=== PATIENT | female | born 1965 | race Caucasian/White ===

== ENCOUNTER 2017-04-19 15:56 | Inpatient (IN) | payer MEDICARE ==
[~2017-04-19] VITALS: Ht 154.9 cm; Wt 72.6 kg
--- NOTE | ~2017-04-19 | EC ---
PATIENT:MADYSON HESS DATE OF SERVICE: 04/19/17 SEX: F MEDICAL RECORD: [id number] DATE OF : 63 LOCATION:D. D.212 AGE OF PATIENT: 51 ADMISSION DATE: 04/19/17 REFERRING PHYSICIAN: INTERPRETING PHYSICIAN: VENKATA LEON MD ECHOCARDIOGRAM REPORT ECHO CHARGES 4 ECHO COMPLETE CLINICAL DIAGNOSIS: EVALUATE FUNCTION ECHOCARDIOGRAPHIC MEASUREMENTS (adult normal given) AC root (d.<3.7cm) 2.7 cm LV Septum d (<1.2 cm> 1.9 cm Valve Excursion 1.9 cm LV Septum (systole) 2.4 cm Left Atria (s.<4.0cm> 4.5 cm LVPW d(<1.2cm) 1.6 cm RV (d.<2.3cm) 2.4 cm LVPW (sytole) 2.1 cm LV diastole(<5.6CM) 3.9 cm MV E-F(>70mm/sec) cm LV systole 2.2 cm LVOT Diameter 1.7 cm MV exc.(>10mm) cm Est.ejection fraction (50-75%) % Pericardial Effusion N DOPPLER: LVIT cm/sec A 69.0 cm/sec E 102 cm/sec LA cm/sec RVSP 48.0 mmHg LVOT 156 cm/sec AOP1/2T m/s Asc. Ao 210 cm/sec RVOT 131 cm/sec RA cm/sec PA 118 cm/sec AV Gradient Peak 18.0 mmHg AV Mean 7.8 mmHg AV Area 14.7 cm MV Gradient Peak 5.1 mmHg MV Mean 2.0 mmHg MV Area cm COMMENTS: Concrete Form Setter And Finisher: 1 NATANAEL PARDO [facility] Social Worker: 2 Dr. Davis TAPE# PACS DATE OF SERVICE: 04/20/2017 PROCEDURE: Echocardiogram. FINDINGS: 1. Left ventricular chamber size is within normal limits. Left ventricular systolic function is normal. Overall ejection fraction estimated at 50%. 2. Left atrium is enlarged at 4.5 cm. Right atrium and right ventricular chamber sizes are as well mildly dilated. 3. Valvular structures have normal structure and motion. ECHOCARDIOGRAM REPORT [id number] MADYSON HESS 4. Doppler interrogation reveals mild mitral regurgitation, moderate tricuspid regurgitation, no other valvular insufficiency or stenosis. Pulmonary systolic pressure is elevated estimated at 48 mmHg. 5. No evidence of pericardial effusion or left ventricular thrombus. TRANSINT:[id number] Voice Confirmation ID: [id number] DOCUMENT ID: [id number] VENKATA LEON MD at 1148 CC: [id number] DICTATION DATE: 04/21/17 0947 ICER AIR CONDITIONING: 04/21/17 1013 ADM IN [facility] [address] [id number]
--- NOTE | ~2017-04-19 | OP ---
PATIENT NAME: MADYSON HESS MEDICAL RECORD: [id number] :63 LOCATION:D. D.2121 ADMISSION DATE:04/19/17 SURGEON: SANDIP DAWN MD DATE OF OPERATION: 04/21/2017 REFERRING PHYSICIANS: 1. Dr. Estevez of the renal group. 2. Dr. Kovacs here in [facility]. 3. Avani Fountain APN for the renal group. SURGEON: Sandip Dawn MD ANESTHESIA: General with LMA per LEAN MANUFACTURING COORDINATOR PREOPERATIVE DIAGNOSIS: Acute renal failure, chronic kidney disease and severe hypertension. POSTOPERATIVE DIAGNOSIS: Acute renal failure, chronic kidney disease and severe hypertension. OPERATION PERFORMED: Implantation of a right internal jugular 19-cm HemoSplit catheter done with ultrasound and fluoroscopic guidance. PREOPERATIVE NOTE: This 51-year-old alcoholic female was transferred here with malignant hypertension, acute renal failure from [place], she was admitted to Dr. Kovacs on [facility], Dr. Estevez of nephrology was consulted and he and nurse practitioner Avani Fountain consulted me yesterday afternoon for placement of a dialysis catheter that she is brought to the operating room for this morning. DESCRIPTION OF PROCEDURE: Under general anesthesia with LMA per LEAN MANUFACTURING COORDINATOR, the patient was prepped and draped in a sterile manner in the right internal jugular vein was located with the LilaKutu Duplex Ultrasound. She was placed in Trendelenburg position. A small incision was made at the base of the neck over the vein and a needle and guidewire placed directly into the internal jugular vein under ultrasound guidance. Under fluoroscopy, dilators were passed in the dilator peel-away introducer. I chose a 19-cm HemoSplit and inserted this through an infraclavicular entry site through a subcutaneous tunnel up to the cervical incision and inserted it then the through the peel-away sheath and removed the sheath. Fluoroscopy revealed good positioning of the catheter in the right atrium. Both lumens were accessed and aspirated, free return of blood confirmed. They were then flushed with saline and then heparin lock solution, clamped and capped. The catheter was sutured to the skin, near the entry site with 2-0 Prolene and the cervical incision closed with interrupted inverted 3-0 Vicryl and Dermabond glue. Sterile dressings of the usual nature were applied and the patient awakened and taken to the recovery room. She will go on to have dialysis today. There was no blood loss. No complications occurred during the surgery. TRANSINT:[id number] Voice Confirmation ID: [id number] DOCUMENT ID: [id number] OPERATIVE REPORT [id number] MADYSON HESS JAMES MD at 1404 CC: [id number] DICTATION DATE: 04/21/17 0948 ORDER ANALYST: 04/21/17 1143 ADM IN [id number] [place] [address]
[2017-04-19 19:34] VITALS: BP 144/68; BMI 30.3
[2017-04-19 20:26] LABS: INR 1.62 (0.85-1.17); PROTIME 18.8 SECONDS (11.6-15.0)
[2017-04-19 20:34] LABS: % SATURATION 6 % (15-55); IRON 10 ug/dl (35-150); TOTAL IRON BIND CAPACITY 165 ug/dl (260-445); UNSAT IRON BIND CAPACITY 155 ug/dl (150-375)
[2017-04-19 20:58] VITALS: BP 144/68
[2017-04-20 01:12] VITALS: BP 150/84
[2017-04-20 05:58] VITALS: BP 167/85
[2017-04-20 06:50] LABS: ANION GAP 17.2 mmol/L (8-16); CALCIUM 8.2 mg/dL (8.5-10.1); CREATININE - SERUM 13.6 mg/dL (0.6-1.3); POTASSIUM - SERUM 3.2 mmol/L (3.5-5.1)
[2017-04-20 07:23] LABS: BASOPHILS 0.1 % (0-2); EOSINOPHILS 0.1 % (0-7); HEMATOCRIT 20.3 % (36.0-48.0); IMMATURE GRANULOCYTES 0.3 % (0-5); LYMPHOCYTES 3.3 % (15-50); MCHC 31.5 g/dL (31.0-37.0); MCV 66.6 fL (80.0-100.0); MONOCYTES 3.1 % (2-11); NEUTROPHILS 93.1 % (40-80); PLATELET COUNT 126 10x3/uL (130-400); RBC 3.05 10x6/uL (4.00-5.40); WBC 15.1 10x3/uL (4.8-10.8)
[2017-04-20 07:26] LABS: HEMOGLOBIN 6.4 g/dL (12-16)
[2017-04-20 08:08] VITALS: BP 175/84
[2017-04-20 10:58] VITALS: BP 166/71
[2017-04-20 13:42] VITALS: BMI 30.2
[2017-04-20 14:37] VITALS: Ht 154.9 cm; Wt 72.6 kg
[2017-04-20 15:02] LABS: % SATURATION 6 % (15-55); IRON 10 ug/dl (35-150); TOTAL IRON BIND CAPACITY 144 ug/dl (260-445); UNSAT IRON BIND CAPACITY 134 ug/dl (150-375)
[2017-04-20 15:13] LABS: ALBUMIN 2.3 g/dL (3.4-5.0); ANION GAP 20.5 mmol/L (8-16); BILIRUBIN - TOTAL 0.4 mg/dL (0.2-1.3); CARBON DIOXIDE 14.8 mmol/L (21.0-32.0); CREATININE - SERUM 14.3 mg/dL (0.6-1.3); POTASSIUM - SERUM 3.3 mmol/L (3.5-5.1)
[2017-04-20 15:14] LABS: APPEARANCE HAZY (CLEAR); BACTERIA MODERATE /hpf (NONE SEEN); BILIRUBIN NEGATIVE (NEGATIVE); COLOR YELLOW (YELLOW); GLUCOSE NEGATIVE (NEGATIVE); KETONE NEGATIVE (NEGATIVE); NITRITE NEGATIVE (NEGATIVE); PROTEIN 2+ mg/dL (NEGATIVE); RED CELLS - URINE >50 /hpf (0-5); UROBILINOGEN NORMAL (NORMAL); WHITE CELLS - URINE 25-50 /hpf (0-5)
[2017-04-20 15:33] VITALS: BP 199/110
[2017-04-20 20:00] VITALS: BP 199/109
[2017-04-21] VITALS: BP 188/100
[2017-04-21 04:00] VITALS: BP 177/88
[2017-04-21 05:16] LABS: HAPTOGLOBIN 134 mg/dL (34-200)
[2017-04-21 07:38] LABS: LYMPHOCYTES 4.9 % (15-50); MCH 23.7 pg (26.0-34.0); MCHC 32.9 g/dL (31.0-37.0); NEUTROPHILS 90.3 % (40-80); PLATELET COUNT 141 10x3/uL (130-400); RDW 22.6 % (11.5-14.5); WBC 12.8 10x3/uL (4.8-10.8)
[2017-04-21 07:39] LABS: HEMATOCRIT 28.6 % (36.0-48.0); HEMOGLOBIN 9.4 g/dL (12-16); MCV 72.2 fL (80.0-100.0); RBC 3.96 10x6/uL (4.00-5.40)
[2017-04-21 07:48] LABS: ANION GAP 19.5 mmol/L (8-16); CALCIUM 8.3 mg/dL (8.5-10.1); CARBON DIOXIDE 16.5 mmol/L (21.0-32.0); CREATININE - SERUM 13.3 mg/dL (0.6-1.3)
[2017-04-21 11:46] VITALS: BP 130/69
[2017-04-21 16:11] VITALS: BP 132/71
[2017-04-21 17:12] LABS: HEPATITIS C ANTIBODY <0.1 (0.0-0.9)
[2017-04-21 20:00] VITALS: BP 177/89
[2017-04-22] VITALS: BP 180/90
[2017-04-22 04:00] VITALS: BP 184/90
[2017-04-22 05:59] LABS: BASOPHILS 0 % (0-2); EOSINOPHILS 0 % (0-7); HEMATOCRIT 30.9 % (36.0-48.0); IMMATURE GRANULOCYTES 0.2 % (0-5); LYMPHOCYTES 3.7 % (15-50); MCH 23.3 pg (26.0-34.0); MCHC 32.4 g/dL (31.0-37.0); MCV 71.9 fL (80.0-100.0); MONOCYTES 2.7 % (2-11); NEUTROPHILS 93.4 % (40-80); PLATELET COUNT 160 10x3/uL (130-400)
[2017-04-22 06:57] LABS: ANION GAP 26.2 mmol/L (8-16); CALCIUM 8.2 mg/dL (8.5-10.1); CARBON DIOXIDE 12.4 mmol/L (21.0-32.0); POTASSIUM - SERUM 4.6 mmol/L (3.5-5.1)
[2017-04-22 08:46] VITALS: BP 198/99
[2017-04-22 10:20] LABS: HAPTOGLOBIN 166 mg/dL (34-200)
[2017-04-22 12:23] VITALS: BP 214/107
[2017-04-22 19:00] VITALS: BP 225/103
[2017-04-23 04:00] VITALS: BP 190/100
[2017-04-23 07:06] LABS: CARBON DIOXIDE 20.1 mmol/L (21.0-32.0); CREATININE - SERUM 8.6 mg/dL (0.6-1.3); POTASSIUM - SERUM 3.1 mmol/L (3.5-5.1)
[2017-04-23 07:08] LABS: BASOPHILS 0 % (0-2); EOSINOPHILS 0.5 % (0-7); HEMATOCRIT 31.3 % (36.0-48.0); HEMOGLOBIN 10.6 g/dL (12-16); IMMATURE GRANULOCYTES 0.2 % (0-5); MCH 23.6 pg (26.0-34.0); MCHC 33.9 g/dL (31.0-37.0); MONOCYTES 4.7 % (2-11); NEUTROPHILS 90.6 % (40-80); PLATELET COUNT 141 10x3/uL (130-400); RDW 22.9 % (11.5-14.5); WBC 12.9 10x3/uL (4.8-10.8)
[2017-04-23 07:15] LABS: MCV 69.6 fL (80.0-100.0)
[2017-04-23 07:44] VITALS: BP 223/111
[2017-04-23 09:18] LABS: SPE - A/G RATIO 0.9 (0.7-1.7); SPE - ALBUMIN 2.6 g/dL (2.9-4.4); SPE - ALPHA-1 GLOBULIN 0.3 g/dL (0.0-0.4); SPE - ALPHA-2 GLOBULIN 0.6 g/dL (0.4-1.0); SPE - BETA GLOBULIN 0.6 g/dL (0.7-1.3); SPE - GAMMA GLOBULIN 1.3 g/dL (0.4-1.8); SPE - M-SPIKE Not Observed g/dL (Not Observed); SPE - TOTAL PROTEIN 5.4 g/dL (6.0-8.5)
[2017-04-23 15:17] VITALS: BP 194/99
[2017-04-23 21:46] VITALS: BP 210/121
[2017-04-24 00:33] VITALS: BP 208/109
[2017-04-24 04:51] VITALS: BP 129/75
[2017-04-24 05:14] LABS: ANION GAP 15.9 mmol/L (8-16); CARBON DIOXIDE 23.8 mmol/L (21.0-32.0); POTASSIUM - SERUM 3.7 mmol/L (3.5-5.1)
[2017-04-24 05:18] LABS: BASOPHILS 0.1 % (0-2); EOSINOPHILS 0.1 % (0-7); HEMATOCRIT 33.6 % (36.0-48.0); HEMOGLOBIN 11.2 g/dL (12-16); IMMATURE GRANULOCYTES 0.4 % (0-5); LYMPHOCYTES 5.3 % (15-50); MCH 23.1 pg (26.0-34.0); MCHC 33.3 g/dL (31.0-37.0); MCV 69.3 fL (80.0-100.0); MONOCYTES 6.3 % (2-11); NEUTROPHILS 87.8 % (40-80); PLATELET COUNT 130 10x3/uL (130-400); RBC 4.85 10x6/uL (4.00-5.40); RDW 22.7 % (11.5-14.5); WBC 10.8 10x3/uL (4.8-10.8)
[2017-04-24 05:25] LABS: CREATININE - SERUM 6.4 mg/dL (0.6-1.3)
[2017-04-24 07:28] VITALS: BP 156/88
[2017-04-24 15:00] VITALS: BP 113/78
[2017-04-24 20:00] VITALS: BP 140/73
[2017-04-25 00:51] VITALS: BP 131/76
[2017-04-25 04:32] VITALS: BP 151/79
[2017-04-25 07:54] VITALS: BP 138/84
[2017-04-25 11:09] LABS: BASOPHILS 0 % (0-2); EOSINOPHILS 1.4 % (0-7); HEMATOCRIT 30.8 % (36.0-48.0); IMMATURE GRANULOCYTES 0.6 % (0-5); LYMPHOCYTES 8.7 % (15-50); MCHC 32.5 g/dL (31.0-37.0); MCV 70.8 fL (80.0-100.0); MONOCYTES 7.4 % (2-11); NEUTROPHILS 81.9 % (40-80); PLATELET COUNT 123 10x3/uL (130-400); RBC 4.35 10x6/uL (4.00-5.40); RDW 22.9 % (11.5-14.5); WBC 12.5 10x3/uL (4.8-10.8)
[2017-04-25 11:19] LABS: ANION GAP 12.7 mmol/L (8-16); CALCIUM 8.3 mg/dL (8.5-10.1); CARBON DIOXIDE 26.2 mmol/L (21.0-32.0); CREATININE - SERUM 5.8 mg/dL (0.6-1.3); POTASSIUM - SERUM 3.9 mmol/L (3.5-5.1)
[2017-04-25 11:28] VITALS: BP 136/88
[2017-04-25 15:22] VITALS: BP 115/77
[2017-04-25 19:00] VITALS: BP 141/80
[2017-04-26] VITALS: BP 121/63
[2017-04-26 04:00] VITALS: BP 136/77
[2017-04-26 04:31] LABS: BASOPHILS 0.1 % (0-2); EOSINOPHILS 3.2 % (0-7); HEMATOCRIT 29.4 % (36.0-48.0); HEMOGLOBIN 9.2 g/dL (12-16); IMMATURE GRANULOCYTES 0.5 % (0-5); LYMPHOCYTES 8.9 % (15-50); MCH 22.5 pg (26.0-34.0); MCHC 31.3 g/dL (31.0-37.0); MCV 71.9 fL (80.0-100.0); NEUTROPHILS 79.3 % (40-80); RBC 4.09 10x6/uL (4.00-5.40); RDW 22.7 % (11.5-14.5)
[2017-04-26 04:32] LABS: PLATELET COUNT 151 10x3/uL (130-400)
[2017-04-26 04:52] LABS: ANION GAP 15.9 mmol/L (8-16); CALCIUM 7.4 mg/dL (8.5-10.1); CARBON DIOXIDE 23.7 mmol/L (21.0-32.0); CREATININE - SERUM 6.2 mg/dL (0.6-1.3); POTASSIUM - SERUM 3.6 mmol/L (3.5-5.1)
[2017-04-26 08:24] VITALS: BP 142/76
[2017-04-26 11:36] VITALS: BP 131/80
[2017-04-26 15:41] VITALS: BP 135/78
[2017-04-26 20:00] VITALS: BP 157/75
[2017-04-27] VITALS: BP 143/86
[2017-04-27 04:00] VITALS: BP 144/77
[2017-04-27 05:38] LABS: BASOPHILS 0.1 % (0-2); EOSINOPHILS 2.6 % (0-7); HEMATOCRIT 31.6 % (36.0-48.0); HEMOGLOBIN 10.2 g/dL (12-16); IMMATURE GRANULOCYTES 0.4 % (0-5); LYMPHOCYTES 9.4 % (15-50); MCH 23.2 pg (26.0-34.0); MCHC 32.3 g/dL (31.0-37.0); NEUTROPHILS 80.5 % (40-80); RBC 4.39 10x6/uL (4.00-5.40); RDW 22.9 % (11.5-14.5); WBC 10.6 10x3/uL (4.8-10.8)
[2017-04-27 05:40] LABS: PLATELET COUNT 214 10x3/uL (130-400)
[2017-04-27 05:55] LABS: ANION GAP 16.8 mmol/L (8-16); CALCIUM 7.8 mg/dL (8.5-10.1); CARBON DIOXIDE 22.8 mmol/L (21.0-32.0); CREATININE - SERUM 6.9 mg/dL (0.6-1.3); POTASSIUM - SERUM 3.6 mmol/L (3.5-5.1)
[2017-04-27 07:48] VITALS: BP 131/78
[2017-04-27] MEDS ORDERED: PROCARDIA XL PO (11:08)
[2017-04-27] MEDS ORDERED: LOPRESSOR25 MG PO (11:08)
[2017-04-27 14:56] VITALS: BP 120/76
== END 2017-04-27 17:38 | DRG 682 ==
LOC: D.M2 15:56
PROVIDERS: Emergency Medicine; Internal Medicine Nephrology; Surgery
PROC: 05HM33Z Insertion of Infusion Device into Right Internal Jugular Vein, Percutaneous Approach (ICD-10-PCS; principal; 2017-04-21 08:00)
DX: I12.0 Hypertensive chronic kidney disease with stage 5 chronic kidney disease or end stage renal disease (principal); N18.6 End stage renal disease; N17.9 Acute kidney failure, unspecified; I16.9 Hypertensive crisis, unspecified; D63.1 Anemia in chronic kidney disease

== ENCOUNTER 2017-04-27 18:18 | Inpatient (IN) | payer MEDICARE ==
[~2017-04-27] VITALS: Ht 154.9 cm; Wt 59.0 kg
--- NOTE | ~2017-04-27 | DS ---
PATIENT:MADYSON HESS :63 MEDICAL RECORD: [id number] DISCHARGE SUMMARY ADMISSION DATE: 04/27/17 DISCHARGE DATE: 05/08/17 This is a discharge dated 05/08/2017 from inpatient rehabilitation. PRIMARY DIAGNOSIS: Decreased functional ability and ability to provide activities of daily living secondary to uremic myopathy. SECONDARY DIAGNOSES: 1. Acute renal failure on chronic kidney disease. 2. End-stage renal disease, on hemodialysis. 3. Hypokalemia. 4. Hyponatremia. 5. Hypertension. 6. Acute respiratory failure with hypoxemia. 7. ETOH abuse. 8. Anemia of chronic disease. 9. Iron deficiency anemia. 10. Partial small-bowel obstruction. 11. Pseudoobstruction of the abdomen. 12. Ileus. CONSULTS THIS HOSPITALIZATION: 1. Nephrology with Dr. Silva. 2. Surgery with Dr. Hartmann. HOSPITAL COURSE: Full H&P is located elsewhere on the chart on this 51-year-old female who is admitted to inpatient rehab for physical therapy and occupational therapy to improve gait, transfer skills, bed mobility, and activities of daily living to a modified independent level. She was evaluated by PT and OT and their plans of care were followed. She required fdc care for observation and assessment and medication administration. Electrolytes were managed by protocol. She continued on 3 times weekly hemodialysis monitored by nephrology, Dr. Silva. She did receive 2 units of packed red blood cells for an H&H of 7.5 and 24.5. She remained on supplemental oxygen to keep sats greater than 90%. She developed some abdominal pain. X-rays were consistent with a possible small-bowel obstruction versus ileus. Surgery was consulted. She was seen by Dr. Hartmann. CT of the abdomen was consistent with resolving obstruction/pseudo obstruction. She was cooperative with therapies, progressing towards goals. Case management was involved for discharge planning. She was considered stable for discharge on 05/08/2017. DISCHARGE MEDICATIONS: As per discharge medication reconciliation. DISCHARGE DISPOSITION: The patient is discharged home. She will continue her current diet and level of activity. She will be seen by home health for continued PT and OT. She will continue with 3 times weekly hemodialysis at [facility]. She will follow with primary care and specialists as directed. At least 30 minutes was spent in this discharge activity. TRANSINT:[id number] Voice Confirmation ID: [id number] DOCUMENT ID: [id number] DISCHARGE SUMMARY REPORT [id number] MADYSON HESS Dictated By: RICHI STUART I have interviewed/examined the above patient and agree with these documented findings. JOJO COHN MD at 1511 at 1512 CC: [id number] DICTATION DATE: 06/07/17 173 UTILITY SALES AND SERVICE MANAGER: 06/08/17 1157 DIS IN 05/08/17 [address] [place] [address]
--- NOTE | ~2017-04-27 | RHP ---
PATIENT: MADYSON HESS MEDICAL RECORD: [id number] ACCOUNT: [id number] LOCATION:[facility]1116 : 63 ADMISSION DATE: 04/27/17 REHABILITATION HISTORY AND PHYSICAL EXAMINATION POST ADMISSION PHYSICIAN EXAMINATION POST-ADMISSION PHYSICAL EXAM AND HISTORY AND PHYSICAL DATE OF ADMISSION TO THE REHAB: 04/27/2017 ADMITTING DIAGNOSIS: Uremic myopathy. HISTORY OF PRESENT ILLNESS: The patient admitted to inpatient rehabilitation with neurological condition, uremic myopathy. She is a 51-year-old female patient who was transferred to the hospital for further workup due to acute renal failure. She is noted alcoholic, who had not seen a doctor in 20 years, presented to [place] ED with epigastric discomfort. She was found to be markedly hypertensive with a systolic blood pressure of 260, a creatinine of 13.25 and evidence of volume overload. She had body wall edema and bilateral pleural effusions on CT. Renal size was not commented on upon her noncontrast CT. She was transferred here for higher level of care. There was 3+ protein and 1+ blood reported in [place]. She is a poor historian. She had significant renal failure and was in need of dialysis. It was unclear as to whether this represented end-stage renal disease or acute renal failure in the setting of hypertensive crisis. Two units of blood were transfused. Hemoglobin was 6 and she was admitted and started on IV ferritin for iron deficiency. Nephrology and general surgery saw the patient. HD catheter was placed. The patient was started on hemodialysis which she received hemodialysis treatment once daily for 3 days and started on a Thursday, Thursday and Thursday hemodialysis regimen. The patient has stabilized and ready to be discharged from the acute hospital. 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 She states she is very weak with proximal muscle weakness rising from the bed or chair and she is unsteady with ambulation with use of a rolling walker, is currently O2 dependent on 2 liters. She was not on this before. She is a new hemodialysis patient. She is being set up for outpatient hemodialysis. She plans to recover well in the acute rehab and hopefully return back to her apartment and continue along with hemodialysis treatments. Comorbidities in this patient include bilateral effusions, acute renal failure, hypertensive crisis, hypertension, anemia, chronic alcohol use, chronic kidney disease, volume overload, microcytic anemia, poor dentition. PAST MEDICAL HISTORY: Significant for hypertension, edema, developmentally disabled, history of alcohol use. PAST SURGICAL HISTORY: None other than hemodialysis catheter. ALLERGIES: No known drug allergies. MEDICATIONS: Current medications include MiraLax 17 grams in 8 ounces of water daily, Procardia XL 90 mg b.i.d. She is on metoprolol 25 mg b.i.d. HABITS: Does have a history of alcohol use. HISTORY AND PHYSICAL [id number] HESSMADYSON Shelli FAMILY HISTORY: Noncontributory. SOCIAL HISTORY: The patient hopes to return back to her apartment in [place]. REVIEW OF SYSTEMS: GENERAL: Does complain of weakness and fatigue. HEENT: Denies cold, cough, or congestion. CARDIOVASCULAR: Denies chest pain. PHYSICAL EXAMINATION: VITAL SIGNS: Stable, afebrile. GENERAL: A short stature black female in no acute distress, alert upon exam. HEENT: Normocephalic and atraumatic. Mucosa moist. NECK: Supple. No lymphadenopathy. LUNGS: Clear at this time. HEART: Regular rate and rhythm. ABDOMEN: Benign. EXTREMITIES: No clubbing, cyanosis or edema. NEUROLOGIC: She seems intact. LABORATORY DATA: Her white count is 11.8, H&H of 8.8 and 28.1. Her MCV is not markedly decreased at 73.6. Platelet count was noted to be 199. Sodium 134, potassium 3.4, BUN and creatinine of 22 and 4.9, and blood sugar is noted to be 80. ASSESSMENT: This is a 51-year-old female patient admitted to rehab with a working diagnosis of uremic myopathy. The patient has potential to make improvement. We instituted the following multidisciplinary therapies including to but not limited physical, occupational, respiratory, speech, nutritional services, prosthetics and orthotics. Given her complex condition and risk for more complications, rehabilitation service cannot be provided at a low level of care such as penitentiary facility. PLAN: 1. Admit to [facility] for intensive inpatient therapy to include the following disciplines: A. Physical therapy to improve gait, all transfer skills and bed mobility to a modified independent level. B. Occupational therapy to improve activities of daily living to a modified independent level. C. Case management to assist with discharge planning and placement options. D. Nutrition to assist with nutritional needs. E. Rehabilitation nursing to assist in monitoring the patient's underlying medical conditions and to assist with any type of bowel or bladder management. 2. The patient's current medications and medical care will be continued. 3. The patient will be placed on standard fall precautions. 4. The patient's estimated length of stay is approximately 7-10 days. 5. Discuss this patient during care team staff meeting this week which we will meet tomorrow. Hopefully, we will get her back to [place] back to her prior level of functioning and home. TRANSINT:[id number] Voice Confirmation ID: [id number] DOCUMENT ID: [id number] ELENI notes whether there has been none or any medical/functional HISTORY AND PHYSICAL [id number] MADYSON HESS change since admission: - No change since preadmission screen. ELENI attests patient continues to be appropriate for IRF: - Continues to be appropriate. JOJO COHN MD at 1248 CC: [id number] DICTATION DATE: 04/28/17 08 PERINATAL BREASTFEEDING ASSISTANT: 04/28/17 0905 ADM IN [facility] [address] [place] [address]
[~2017-04-27 18:18] MED LIST: LOPRESSOR25 MG PO; PROCARDIA XL PO
[2017-04-27 19:00] VITALS: BP 154/84
[2017-04-28 06:30] LABS: BASOPHILS 0.1 % (0-2); EOSINOPHILS 1.8 % (0-7); HEMATOCRIT 28.1 % (36.0-48.0); HEMOGLOBIN 8.8 g/dL (12-16); IMMATURE GRANULOCYTES 0.3 % (0-5); LYMPHOCYTES 11.7 % (15-50); MCHC 31.3 g/dL (31.0-37.0); MCV 73.6 fL (80.0-100.0); MONOCYTES 9.4 % (2-11); NEUTROPHILS 76.7 % (40-80); PLATELET COUNT 199 10x3/uL (130-400); RBC 3.82 10x6/uL (4.00-5.40); RDW 21.9 % (11.5-14.5); WBC 11.8 10x3/uL (4.8-10.8)
[2017-04-28 06:40] LABS: CALCIUM 7.9 mg/dL (8.5-10.1); CARBON DIOXIDE 25.4 mmol/L (21.0-32.0); CREATININE - SERUM 4.9 mg/dL (0.6-1.3); POTASSIUM - SERUM 3.4 mmol/L (3.5-5.1)
[2017-04-28 08:44] VITALS: BP 158/87
[2017-04-28 13:24] VITALS: Ht 154.9 cm; Wt 59.0 kg
[2017-04-29 02:10] VITALS: BP 156/75
[2017-04-29 06:22] LABS: BASOPHILS 0 % (0-2); EOSINOPHILS 1.5 % (0-7); HEMOGLOBIN 8.8 g/dL (12-16); IMMATURE GRANULOCYTES 0.5 % (0-5); LYMPHOCYTES 7.9 % (15-50); MCHC 31.4 g/dL (31.0-37.0); MCV 73.3 fL (80.0-100.0); MONOCYTES 7.7 % (2-11); NEUTROPHILS 82.4 % (40-80); PLATELET COUNT 181 10x3/uL (130-400); RBC 3.82 10x6/uL (4.00-5.40); RDW 21.7 % (11.5-14.5)
[2017-04-29 06:34] LABS: ANION GAP 16.5 mmol/L (8-16); CALCIUM 7.5 mg/dL (8.5-10.1); CARBON DIOXIDE 23.5 mmol/L (21.0-32.0); CREATININE - SERUM 5.8 mg/dL (0.6-1.3)
[2017-04-29 07:50] VITALS: BP 146/71
[2017-04-29 20:00] VITALS: BP 174/89
[2017-04-30 07:43] VITALS: BP 126/68
[2017-05-01 02:07] VITALS: BP 146/73
[2017-05-01 07:02] LABS: BASOPHILS 0.1 % (0-2); EOSINOPHILS 0.5 % (0-7); HEMATOCRIT 24.5 % (36.0-48.0); IMMATURE GRANULOCYTES 0.2 % (0-5); LYMPHOCYTES 7.8 % (15-50); MCH 22.9 pg (26.0-34.0); MCHC 30.6 g/dL (31.0-37.0); MCV 74.9 fL (80.0-100.0); MEAN PLATELET VOLUME 10.2 fL (7.4-10.4); MONOCYTES 7.4 % (2-11); PLATELET COUNT 210 10x3/uL (130-400); RBC 3.27 10x6/uL (4.00-5.40); RDW 21.3 % (11.5-14.5)
[2017-05-01 07:11] LABS: ANION GAP 11.2 mmol/L (8-16); CALCIUM 7.3 mg/dL (8.5-10.1); CARBON DIOXIDE 27.9 mmol/L (21.0-32.0); CREATININE - SERUM 5.1 mg/dL (0.6-1.3); HEMOGLOBIN 7.5 g/dL (12-16); POTASSIUM - SERUM 3.1 mmol/L (3.5-5.1); WBC 16.8 10x3/uL (4.8-10.8)
[2017-05-01 09:12] VITALS: BP 142/66
[2017-05-01 23:12] VITALS: BP 170/75
[2017-05-02 08:34] VITALS: BP 138/67
[2017-05-02 20:39] VITALS: BP 156/78
[2017-05-03 07:59] VITALS: BP 133/76
[2017-05-03 19:25] VITALS: BP 136/84
[2017-05-04 06:35] LABS: BASOPHILS 0.1 % (0-2); EOSINOPHILS 1.7 % (0-7); HEMATOCRIT 23.9 % (36.0-48.0); IMMATURE GRANULOCYTES 0.4 % (0-5); LYMPHOCYTES 11.9 % (15-50); MCH 22.8 pg (26.0-34.0); MCV 73.5 fL (80.0-100.0); MEAN PLATELET VOLUME 9.3 fL (7.4-10.4); MONOCYTES 11.2 % (2-11); NEUTROPHILS 74.7 % (40-80); PLATELET COUNT 252 10x3/uL (130-400); RBC 3.25 10x6/uL (4.00-5.40); RDW 21.2 % (11.5-14.5); WBC 10.9 10x3/uL (4.8-10.8)
[2017-05-04 06:37] LABS: ANION GAP 15.1 mmol/L (8-16); CALCIUM 7.3 mg/dL (8.5-10.1); CARBON DIOXIDE 24.5 mmol/L (21.0-32.0); CREATININE - SERUM 5.2 mg/dL (0.6-1.3); HEMOGLOBIN 7.4 g/dL (12-16); POTASSIUM - SERUM 3.6 mmol/L (3.5-5.1)
[2017-05-04 07:47] VITALS: BP 140/76
[2017-05-04 20:00] VITALS: BP 152/94
[2017-05-05 08:50] VITALS: BP 154/81
[2017-05-05 20:00] VITALS: BP 163/85
[2017-05-06 06:28] LABS: BASOPHILS 0.1 % (0-2); EOSINOPHILS 1.7 % (0-7); IMMATURE GRANULOCYTES 0.3 % (0-5); LYMPHOCYTES 16.7 % (15-50); MCH 24.8 pg (26.0-34.0); MCHC 32.5 g/dL (31.0-37.0); MEAN PLATELET VOLUME 9.9 fL (7.4-10.4); MONOCYTES 10.3 % (2-11); NEUTROPHILS 70.9 % (40-80); PLATELET COUNT 264 10x3/uL (130-400); RDW 18.9 % (11.5-14.5); WBC 7.5 10x3/uL (4.8-10.8)
[2017-05-06 06:29] LABS: HEMATOCRIT 33.2 % (36.0-48.0); HEMOGLOBIN 10.8 g/dL (12-16); MCV 76.1 fL (80.0-100.0); RBC 4.36 10x6/uL (4.00-5.40)
[2017-05-06 06:41] LABS: ANION GAP 12.2 mmol/L (8-16); CALCIUM 7.5 mg/dL (8.5-10.1); CARBON DIOXIDE 28.1 mmol/L (21.0-32.0); POTASSIUM - SERUM 3.3 mmol/L (3.5-5.1)
[2017-05-06 06:42] LABS: CREATININE - SERUM 3.7 mg/dL (0.6-1.3)
[2017-05-06 09:12] VITALS: BP 162/85
[2017-05-06 19:30] VITALS: BP 127/73
[2017-05-07 08:00] VITALS: BP 164/79
[2017-05-07 21:08] VITALS: BP 178/92
[2017-05-08 06:10] LABS: BASOPHILS 0.1 % (0-2); EOSINOPHILS 1.8 % (0-7); HEMATOCRIT 33.6 % (36.0-48.0); HEMOGLOBIN 10.6 g/dL (12-16); IMMATURE GRANULOCYTES 0.3 % (0-5); LYMPHOCYTES 14.2 % (15-50); MCH 24.4 pg (26.0-34.0); MCHC 31.5 g/dL (31.0-37.0); MCV 77.2 fL (80.0-100.0); MONOCYTES 8.4 % (2-11); NEUTROPHILS 75.2 % (40-80); PLATELET COUNT 246 10x3/uL (130-400); RBC 4.35 10x6/uL (4.00-5.40); RDW 19.4 % (11.5-14.5)
[2017-05-08 06:46] LABS: CALCIUM 7.3 mg/dL (8.5-10.1); CARBON DIOXIDE 26.3 mmol/L (21.0-32.0)
[2017-05-08 06:49] LABS: ANION GAP 11.7 mmol/L (8-16)
[2017-05-08 08:09] VITALS: BP 177/96
[2017-05-08] MEDS ORDERED: ULTRAM50 MG PO (08:43)
== END 2017-05-08 16:38 | disposition home health service (06) | DRG 92 ==
LOC: D.REHAB 18:18
PROVIDERS: Emergency Medicine
PROC: 5A1D70Z Performance of Urinary Filtration, Intermittent, Less than 6 Hours Per Day (ICD-10-PCS; principal; 2017-05-05)
DX: G72.89 Other specified myopathies (principal); N17.9 Acute kidney failure, unspecified; I16.9 Hypertensive crisis, unspecified; I12.9 Hypertensive chronic kidney disease with stage 1 through stage 4 chronic kidney disease, or unspecified chronic kidney disease; N18.9 Chronic kidney disease, unspecified; D50.9 Iron deficiency anemia, unspecified; F10.10 Alcohol abuse, uncomplicated; Z99.2 Dependence on renal dialysis